=== PATIENT | female | born 2000 | race Hispanic/Latino ===

== ENCOUNTER 2023-01-05 15:25 | Emergency (ER) | payer BC, MEDICAID ==
[~2023-01-05] VITALS: Ht 149.9 cm; Wt 78.0 kg
[2023-01-05 15:49] LABS: APPEARANCE,URINE CLEAR (CLEAR); BILIRUBIN,URINE NEGATIVE (NEGATIVE); COLOR,URINE LIGHT-YELLOW (YELLOW); GLUCOSE, URINE (UA) NEGATIVE (NEGATIVE); KETONES,URINE NEGATIVE (NEGATIVE); LEUKOCYTE ESTERASE ,URINE 75 Leu/uL (NEGATIVE); NITRATE,URINE NEGATIVE (NEGATIVE); OCCULT BLOOD,URINE NEGATIVE (NEGATIVE); PH,URINE 6.5 (5.0-8.0); PROTEIN,URINE NEGATIVE (NEGATIVE); UROBILINOGEN,URINE 0.2 mg/dL (0.2-1.0)
[2023-01-05 15:50] LABS: ADD UA MICROSCOPIC YES
[2023-01-05 15:54] LABS: BACTERIA,URINE RARE /HPF (None Seen); MUCUS,URINE RARE LPF (None Seen); RBC,URINE 0-1 /HPF (0-1); SQUAMOUS EPITHELIAL CELL,UR FEW /HPF (0-2); WBC,URINE 0-1 /HPF (0-1)
[2023-01-05] MEDS ORDERED: 0.9%NACL 1000ML 1,000 ML IV ONE ×2 (16:00→18:30)
[2023-01-05 16:53] LABS: BASOPHILS # (AUTO) 0.05 K/uL (0.00-0.20); BASOPHILS % (AUTO) 0.5 % (0.0-5.0); EOSINOPHILS # (AUTO) 0.06 K/uL (0.00-0.70); EOSINOPHILS % (AUTO) 0.6 % (0.0-8.0); HEMATOCRIT 32.3 % (36-48); IMMATURE GRANULOCYTE ABSOLUTE 0.03 K/uL (0-1); LYMPHOCYTES # (AUTO) 2.7 K/uL (1.0-4.8); LYMPHOCYTES % (AUTO) 28.3 % (21.0-51.0); MEAN CORPUSCULAR HEMOGLOBIN 30.5 pg (27.0-33.0); MEAN CORPUSCULAR HGB CONC 34.1 g/dL (32.0-36.0); MEAN CORPUSCULAR VOLUME 89.5 fL (79-99); MONOCYTES # (AUTO) 0.6 K/uL (0.1-1.0); MONOCYTES % (AUTO) 5.9 % (3.0-13.0); NEUTROPHILS # (AUTO) 6.2 K/uL (1.8-7.7); NEUTROPHILS % (AUTO) 64.4 % (40.0-77.0); PLATELET COUNT (AUTO) 270 K/uL (130-400); RED BLOOD CELL COUNT(AUTO) 3.61 MIL/uL (4.00-5.50); RED CELL DISTRIBUTION WIDTH 13.1 % (11.0-15.5); WHITE BLOOD COUNT (AUTO) 9.7 K/uL (4.8-10.8)
[2023-01-05 17:05] LABS: CREATININE 0.4 mg/dL (0.5-1.5); POTASSIUM 3.4 mmol/L (3.5-5.1)
[2023-01-05 17:31] LABS: ALBUMIN 2.9 g/dL (3.5-5.0); BILIRUBIN,TOTAL 0.2 mg/dL (0.2-1.0); TOTAL PROTEIN, SERUM 6.8 g/dL (6.0-8.3)
[2023-01-05] MEDS ORDERED: ACETAMINOPHEN 325 MG TAB PO ONE (18:00)
[2023-01-05 19:00] VITALS: TEMP 98.3
[2023-01-05] MEDS ORDERED: MACR100 PO (19:01)
[2023-01-05 19:49] VITALS: BP 96/61; PULSE 71; RESP 16; O2SAT 100
== END 2023-01-05 19:50 | disposition home or self-care (01) ==
LOC: EDH 15:25
DX: O23.42 Unspecified infection of urinary tract in pregnancy, second trimester (principal); N39.0 Urinary tract infection, site not specified; O26.891 Other specified pregnancy related conditions, first trimester; Z98.890 Other specified postprocedural states; Z3A.14 14 weeks gestation of pregnancy
CPT/HCPCS: 99284; 96360; 76801; 80053; 84702; 85025; 87088; 81001; 36415; J7030 ×2

== ENCOUNTER 2023-01-09 19:47 | Emergency (ER) | payer BC, MEDICAID ==
[~2023-01-09] VITALS: Ht 149.9 cm; Wt 79.8 kg
[~2023-01-09 19:47] MED LIST: MACR100 PO
[2023-01-09 20:41] LABS: BASOPHILS # (AUTO) 0.04 K/uL (0.00-0.20); BASOPHILS % (AUTO) 0.4 % (0.0-5.0); EOSINOPHILS # (AUTO) 0.07 K/uL (0.00-0.70); EOSINOPHILS % (AUTO) 0.7 % (0.0-8.0); HEMATOCRIT 32.8 % (36-48); IMMATURE GRANULOCYTE ABSOLUTE 0.03 K/uL (0-1); LYMPHOCYTES # (AUTO) 3.3 K/uL (1.0-4.8); LYMPHOCYTES % (AUTO) 32.8 % (21.0-51.0); MEAN CORPUSCULAR HGB CONC 35.4 g/dL (32.0-36.0); MEAN CORPUSCULAR VOLUME 87.7 fL (79-99); MONOCYTES # (AUTO) 0.5 K/uL (0.1-1.0); MONOCYTES % (AUTO) 4.8 % (3.0-13.0); NEUTROPHILS # (AUTO) 6.1 K/uL (1.8-7.7); PLATELET COUNT (AUTO) 296 K/uL (130-400); RED BLOOD CELL COUNT(AUTO) 3.74 MIL/uL (4.00-5.50); RED CELL DISTRIBUTION WIDTH 13.2 % (11.0-15.5); WHITE BLOOD COUNT (AUTO) 9.9 K/uL (4.8-10.8)
[2023-01-09 20:55] LABS: ADD UA MICROSCOPIC YES; APPEARANCE,URINE CLEAR (CLEAR); BILIRUBIN,URINE NEGATIVE (NEGATIVE); COLOR,URINE LIGHT-YELLOW (YELLOW); GLUCOSE, URINE (UA) NEGATIVE (NEGATIVE); KETONES,URINE NEGATIVE (NEGATIVE); LEUKOCYTE ESTERASE ,URINE 250 Leu/uL (NEGATIVE); NITRATE,URINE NEGATIVE (NEGATIVE); OCCULT BLOOD,URINE NEGATIVE (NEGATIVE); PROTEIN,URINE NEGATIVE (NEGATIVE); UROBILINOGEN,URINE 0.2 mg/dL (0.2-1.0)
[2023-01-09 20:57] LABS: ALBUMIN 3.2 g/dL (3.5-5.0); BILIRUBIN,TOTAL 0.2 mg/dL (0.2-1.0); CREATININE 0.4 mg/dL (0.5-1.5); POTASSIUM 3.4 mmol/L (3.5-5.1); TOTAL PROTEIN, SERUM 7.2 g/dL (6.0-8.3)
[2023-01-09 20:58] LABS: BACTERIA,URINE FEW /HPF (None Seen); MUCUS,URINE RARE LPF (None Seen); SQUAMOUS EPITHELIAL CELL,UR FEW /HPF (0-2)
[2023-01-09] MEDS ORDERED: ACETAMINOPHEN 500 MG TABLET PO ONE (21:30)
[2023-01-09] MEDS ORDERED: CEFTRIAXONE 1G VIAL IVPB ONE (22:00)
[2023-01-09 22:36] VITALS: BP 106/62; PULSE 78; RESP 18; O2SAT 99
== END 2023-01-09 22:39 | disposition home or self-care (01) ==
LOC: EDH 19:47
DX: O23.42 Unspecified infection of urinary tract in pregnancy, second trimester (principal); N39.0 Urinary tract infection, site not specified; J45.909 Unspecified asthma, uncomplicated; Z3A.14 14 weeks gestation of pregnancy
CPT/HCPCS: 99284; 96365; 76805; 80053; 85025; 87088; 81001; 36415; J0696

== ENCOUNTER 2023-09-15 17:24 | Emergency (ER) | payer BC, MEDICAID ==
[~2023-09-15] VITALS: Ht 149.9 cm; Wt 88.0 kg
[2023-09-15 19:24] LABS: BASOPHILS # (AUTO) 0.04 K/uL (0.00-0.20); BASOPHILS % (AUTO) 0.4 % (0.0-5.0); HEMATOCRIT 32.3 % (36-48); IMMATURE GRANULOCYTE ABSOLUTE 0.03 K/uL (0-1); LYMPHOCYTES # (AUTO) 1.3 K/uL (1.0-4.8); LYMPHOCYTES % (AUTO) 14.8 % (21.0-51.0); MEAN CORPUSCULAR HEMOGLOBIN 23.8 pg (27.0-33.0); MEAN CORPUSCULAR HGB CONC 31.9 g/dL (32.0-36.0); MEAN CORPUSCULAR VOLUME 74.6 fL (79-99); MONOCYTES # (AUTO) 0.6 K/uL (0.1-1.0); NEUTROPHILS % (AUTO) 77.5 % (40.0-77.0); PLATELET COUNT (AUTO) 356 K/uL (130-400); RED BLOOD CELL COUNT(AUTO) 4.33 MIL/uL (4.00-5.50); RED CELL DISTRIBUTION WIDTH 16.1 % (11.0-15.5)
[2023-09-15 19:32] LABS: CREATININE 0.8 mg/dL (0.5-1.0); POTASSIUM 3.5 mmol/L (3.5-5.1)
[2023-09-15 19:36] LABS: ALBUMIN 3.8 g/dL (3.5-5.0); BILIRUBIN,TOTAL 0.6 mg/dL (0.2-1.0); TOTAL PROTEIN, SERUM 8.2 g/dL (6.0-8.3)
[2023-09-15] MEDS: ACETAMINOPHEN 500 MG TABLET PO ONE (21:09)
[2023-09-15 21:10] LABS: RAPID GROUP A STREP negative (NEGATIVE)
[2023-09-15 21:13] LABS: INFLUENZA TYPE A NEGATIVE FOR TYPE A (NEG); INFLUENZA TYPE B NEGATIVE FOR TYPE B (NEG)
[2023-09-15 21:19] LABS: COVID19 (SARS ANTIGEN RAPID) PRESUMPTIVE NEGATIVE (NEGATIVE)
[2023-09-15 21:47] LABS: APPEARANCE,URINE CLOUDY (CLEAR); BILIRUBIN,URINE NEGATIVE (NEGATIVE); COLOR,URINE LIGHT-YELLOW (YELLOW); GLUCOSE, URINE (UA) NEGATIVE (NEGATIVE); KETONES,URINE 20 mg/dL (NEGATIVE); LEUKOCYTE ESTERASE ,URINE 75 Leu/uL (NEGATIVE); NITRATE,URINE 2+ (NEGATIVE); OCCULT BLOOD,URINE NEGATIVE (NEGATIVE); PH,URINE 7.5 (5.0-8.0); PROTEIN,URINE NEGATIVE (NEGATIVE); UROBILINOGEN,URINE 0.2 mg/dL (0.2-1.0)
[2023-09-15 21:48] LABS: HCG,QUALITATIVE URINE NEGATIVE (NEGATIVE)
[2023-09-15 21:49] LABS: ADD UA MICROSCOPIC YES
[2023-09-15 21:52] LABS: SQUAMOUS EPITHELIAL CELL,UR RARE /HPF (0-2)
[2023-09-15] MEDS: 0.9%NACL 1000ML 1,000 ML IV ONE (21:53)
[2023-09-15 21:56] LABS: BACTERIA,URINE MANY /HPF (None Seen)
[2023-09-15] MEDS: CEFTRIAXONE 1G VIAL IVPB ONE (22:24)
[2023-09-15 22:25] VITALS: TEMP 101.3
[2023-09-15] MEDS: IBUPROFEN 600 MG TABLET PO ONE (22:25)
[2023-09-15 23:01] VITALS: BP 126/65; PULSE 98; RESP 20; O2SAT 98
[2023-09-15] MEDS ORDERED: CEPH500T PO (23:34)
== END 2023-09-15 23:52 | disposition home or self-care (01) ==
LOC: EDH 17:24
DX: N39.0 Urinary tract infection, site not specified (principal); J06.9 Acute upper respiratory infection, unspecified; J45.909 Unspecified asthma, uncomplicated; Z20.822 Contact with and (suspected) exposure to COVID-19; Z98.890 Other specified postprocedural states
CPT/HCPCS: 99285; 96365; 96361; 87426; 82550; 80053; 85025; 87040 ×2; 87077; 87088; 87186; 87880; 87804 ×2; 83605; 81001; 81025; 36415; 93005; J7030; J0696